=== PATIENT | male | born 1945 | race Caucasian/White ===

== ENCOUNTER 2020-04-02 06:50 | Day surgery (SDC) | payer MEDICARE, OTHER ==
[~2020-04-02] VITALS: Ht 193 cm; Wt 90.0 kg
[~2020-04-02 06:50] MED LIST: ADULT LOW DOSE81 MG PO; AMLODIPINE BESY10 MG PO; ASPIRIN EC81 MG PO; BACITRACIN15 GM TOP; CALCIUM600 MG PO; CYCLOBENZAPRINE10 MG PO; DAILY VALUE1 EACH PO; DILAUDID4 MG PO; EXCEDRIN EXTRA1 EAC1 PO; EXCEDRIN MIGRA1 EAC2 PO; FLOMAX0.4 MG PO; FLUOXETINE HCL20 M1 PO; HUMALOG100 UNITS/ SUB-Q; HYDROCHLOROTHIA25 MG PO; IRON27 MG PO; KEFLEX500 MG PO; LANTUS100 UNITS/ SUB-Q; LIPITOR20 MG PO; LISINOPRIL20 MG PO; METOPROLOL TART25 MG PO; MIRALAX17 GM PO; NOVOLOG100 UNIT/1 SUB-Q; SIMVASTATIN40 MG PO; TERAZOSIN HCL1 MG PO; TURMERIC500 M2 PO; TYLENOL325 MG PO; VITAMIN D5000 UNIT PO
[2020-04-02] MEDS ORDERED: HYDROCODON-ACE1 EA10 PO (08:57)
--- NOTE | 2020-04-02 09:09 | NUR ---
04/02/20 0909 Jose,Amber 0838 PT ARRIVED TO PACU ON 6L VIA MASK, PT ASLEEP. CBG 121. 0902 PT WAKES TO TACTILE STIMULI AND DENIES PAIN. HOB INCREASED SLIGHTLY. PT ABLE TO MOVE FINGERS AND REPORTS SOME NUMBNESS. LEFT HAND ELEVATED ON PILLOW AND ICE PLACED. 0904 O2 MASK REMOVED. PT EASILY FALLS BACK TO SLEEP AND SNORING NOTED.
--- NOTE | 2020-04-02 09:27 | NUR ---
PT ALERT, ORIENTED AND SUPPORTED BY HIS CLAYTON. PT SEEMS AT EASE, ALL QUESTIONS ASKED ANSWERED. PRAYER WAS REQUESTED, CLAYTON WILL WAIT IN RM.
--- NOTE | 2020-04-02 10:26 | OR ---
[facility] [address], [place] [address] Signed DATE OF OPERATION: 04/02/2020 SURGEON: Juana Carrillo MD PREOPERATIVE DIAGNOSES: Carpal tunnel syndrome, left. POSTOPERATIVE DIAGNOSIS: Carpal tunnel syndrome, left. PROCEDURE PERFORMED: Carpal tunnel release, left. RADIOTELEGRAPHER: None. ANESTHESIA: Marmarth block. TOURNIQUET TIME: 20 minutes. BRIEF HISTORY: Anjelica is a 75-year-old gentleman with progressive numbness in his left wrist and hand. Nerve conduction studies were consistent with carpal tunnel, and he wished to proceed with surgery. DESCRIPTION OF PROCEDURE: Once consent was obtained, he was taken to the operating room. After adequate anesthesia, he was placed on the operating table, all downside pressure points well padded. The left arm was prepped and draped in a standard sterile fashion. The carpal tunnel was approached through a 1.5 cm incision in the distal wrist crease. Under loupe magnification, dissection was taken down to the transverse carpal ligament. The palmaris longus was identified, retracted, and protected. The was dissected free of overlying soft tissue and released proximally a centimeter and distally to the distal extent, again under direct visualization. This was palpated using a [place] and found to be completely released. Wound was copiously irrigated with antibiotic solution, closed with 3-0 nylon. The wound and wrist were injected with 7 mL of 0.25% plain Marcaine. The wound was dressed with bacitracin, Adaptic, 4 x 8's, and gauze. He tolerated the Electronically Signed By: JUANA CARRILLO MD 04/02/20 1026 PATIENT NAME: ANJELICA MEDINA OPERATIVE REPORT DATE OF : 45 REPORT #: [id number] PHYSICIAN: JUANA CARRILLO MD PCP: STEVEN ROB MD REPORT IS CONFIDENTIAL AND NOT TO BE RELEASED WITHOUT AUTHORIZATION [facility] [address] [facility] [place], [place] [address] Signed procedure well. All sponge, needle, and instrument counts were correct. Juana Carrillo MD BA/ELIERL /[id number] Copies: ~ Electronically Signed By: JUANA CARRILLO MD 04/02/20 1026 PATIENT NAME: ANJELICA MEDINA OPERATIVE REPORT DATE OF : 45 REPORT #: [id number] PHYSICIAN: JUANA CARRILLO MD PCP: STEVEN ROB MD REPORT IS CONFIDENTIAL AND NOT TO BE RELEASED WITHOUT AUTHORIZATION
== END 2020-04-02 09:45 | disposition home or self-care (01) ==
LOC: OPS 06:50 → DS 06:50 → OPS 08:30 → DS 09:15 → OPS 09:45
PROVIDERS: ATTEND Specialist
PROC: 01N50ZZ Release Median Nerve, Open Approach (ICD-10-PCS; principal; 2020-04-02 08:30)
DX: G56.02 Carpal tunnel syndrome, left upper limb (principal); I10 Essential (primary) hypertension; E11.9 Type 2 diabetes mellitus without complications; F32.9 Major depressive disorder, single episode, unspecified; Z79.899 Other long term (current) drug therapy; Z79.82 Long term (current) use of aspirin; Z79.4 Long term (current) use of insulin; Z87.891 Personal history of nicotine dependence
CPT/HCPCS: J0690; J2704; J7121

== ENCOUNTER 2023-01-02 10:22 | Inpatient (IN) | payer MEDICARE, OTHER ==
[2023-01-02] VITALS (7 sets, daily range): BP systolic 114–141; BP diastolic 59–68
[~2023-01-02] VITALS: Ht 193 cm; Wt 101.6 kg
--- OUTSIDE RECORDS SUMMARY | ~2023-01-02 | XMS | Continuity of Care Document ---
Demographics + + + | Address | [address] | | | [place] [address] | + + + | Preferred Language | Unknown | + + + | Marital Status | | + + + | Anglican Affiliation | Unknown | + + + | Race | White | + + + | Ethnic Group | Not or | + + + Author + + + | Author | [facility] | + + + | Organization | [facility] | + + + | Address | [address] | | | [place] [address] | + + + | Phone | | + + + Care Team Providers + + + + | Care Boring Inspector Name | Role | Phone | + + + + Unavailable | Unavailable | + + + + Unavailable | Unavailable | + + + + Unavailable | Unavailable | + + + + Unavailable | Unavailable | + + + + Allergies and Intolerances + + + + + + | date | description | facility | reaction | severity | + + + + + + | (no date) | No Known | [facility] | (no reaction) | (no severity) | | | Allergies | | | | + + + + + + Encounters No information. Functional Status No information. Immunizations + + + + | date | description | facility | + + + + | 2014-02-26 00:00 | DTaP | [facility] | + + + + | 2022-05-08 00:00 | No vaccine administered | [facility] | + + + + Medications + + + + | date | description | facility | + + + + | 2022-05-08 00:00 | Turmeric Root Extract | [facility] | + + + + | 2022-05-08 00:00 | Turmeric extract 500 MG | [facility] | | | Oral Capsule | | + + + + | 2014-02-26 00:00 | BACITRACIN | [facility] | + + + + | 2014-02-26 00:00 | bacitracin zinc 0.5 UNT/MG | [facility] | | | Topical Ointment | | + + + + | 2022-05-08 00:00 | 3 ML insulin aspart, human | [facility] | | | 100 UNT/ML Cartridge | | | | [NovoLog] | | + + + + | 2022-05-08 00:00 | INSULIN ASPART | [facility] | + + + + | 2022-05-08 00:00 | SIMVASTATIN | [facility] | + + + + | 2022-05-08 00:00 | simvastatin 40 MG Oral | [facility] | | | Tablet | | + + + + | 2022-05-08 00:00 | | [facility] | | | ASPIRIN/ACETAMINOPHEN/CAFFE | | | | INE | | + + + + | 2022-05-08 00:00 | acetaminophen 250 MG / | [facility] | | | aspirin 250 MG / caffeine | | | | 65 MG Oral | | + + + + | 2014-02-26 00:00 | CEPHALEXIN | [facility] | + + + + | 2020-02-09 00:00 | CEPHALEXIN | [facility] | + + + + | 2014-02-26 00:00 | cephalexin 500 MG Oral | [facility] | | | Capsule [Keflex] | | + + + + | 2020-02-09 00:00 | cephalexin 500 MG Oral | [facility] | | | Capsule [Keflex] | | + + + + | 2022-05-08 00:00 | CALCIUM CARBONATE | [facility] | + + + + | 2022-05-08 00:00 | calcium carbonate 1500 MG | [facility] | | | Oral Tablet | | + + + + | 2022-05-08 00:00 | INSULIN GLARGINE | [facility] | + + + + | 2022-05-08 00:00 | insulin glargine 100 | [facility] | | | UNT/ML Injectable Solution | | | | [Lantus] | | + + + + | 2022-05-08 00:00 | AMLODIPINE BESYLATE | [facility] | + + + + | 2022-05-08 00:00 | amlodipine 10 MG Oral | [facility] | | | Tablet | | + + + + | 2022-05-08 00:00 | ASPIRIN | [facility] | + + + + | 2022-05-08 00:00 | aspirin 81 MG Delayed | [facility] | | | Release Oral Tablet | | + + + + | 2022-05-08 00:00 | HYDROCHLOROTHIAZIDE | [facility] | + + + + | 2022-05-08 00:00 | hydrochlorothiazide 25 MG | [facility] | | | Oral Tablet | | + + + + | 2022-05-08 00:00 | TERAZOSIN HCL | [facility] | + + + + | 2022-05-08 00:00 | terazosin 1 MG Oral | [facility] | | | Capsule | | + + + + | 2022-05-08 00:00 | ACETAMINOPHEN | [facility] | + + + + | 2022-05-08 00:00 | acetaminophen 325 MG Oral | [facility] | | | Tablet | | + + + + | 2022-05-08 00:00 | LISINOPRIL | [facility] | + + + + | 2022-05-08 00:00 | lisinopril 20 MG Oral | [facility] | | | Tablet | | + + + + | 2022-05-08 00:00 | ATORVASTATIN | [facility] | + + + + | 2022-05-08 00:00 | atorvastatin 20 MG Oral | [facility] | | | Tablet [Lipitor] | | + + + + | 2020-04-02 00:00 | HYDROCODONE | [facility] | | | BIT/ACETAMINOPHEN | | + + + + | 2020-04-02 00:00 | acetaminophen 325 MG / | [facility] | | | hydrocodone bitartrate 5 MG | | | | Oral Tabl | | + + + + | 2022-05-08 00:00 | CHOLECALCIFEROL (VITAMIN | [facility] | | | D3) | | + + + + | 2022-05-08 00:00 | cholecalciferol 0.125 MG | [facility] | | | Oral Tablet | | + + + + | 2022-05-08 00:00 | TAMSULOSIN HCL | [facility] | + + + + | 2022-05-08 00:00 | tamsulosin hydrochloride | [facility] | | | 0.4 MG Oral Capsule | | | | [Flomax] | | + + + + | 2022-05-08 00:00 | INSULIN HUMAN LISPRO | [facility] | + + + + | 2022-05-08 00:00 | insulin lispro 100 UNT/ML | [facility] | | | Injectable Solution | | | | [Humalog] | | + + + + | 2022-05-08 00:00 | METOPROLOL TARTRATE | [facility] | + + + + | 2022-05-08 00:00 | metoprolol tartrate 25 MG | [facility] | | | Oral Tablet | | + + + + | 2022-05-08 00:00 | POLYETHYLENE GLYCOL 3350 | [facility] | + + + + | 2022-05-08 00:00 | polyethylene glycol 3350 | [facility] | | | [address]30 MG Powder for Oral | | | | Solution [ | | + + + + | 2022-05-08 00:00 | HYDROMORPHONE HCL | [facility] | + + + + | 2022-05-08 00:00 | hydromorphone | [facility] | | | hydrochloride 4 MG Oral | | | | Tablet [Dilaudid] | | + + + + Problems + + + + | date | description | facility | + + + + | 2014-02-26 00:00 | Laceration of finger | [facility] | + + + + | 2014-02-26 00:00 | Laceration of finger | [facility] | + + + + | 2014-09-29 00:00 | Pneumothorax | [facility] | + + + + | 2014-09-29 00:00 | Pneumothorax | [facility] | + + + + | 2020-02-09 00:00 | 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 Results/Labs +--------+--------+ +---------+--------+---------+ | test | date | facility | value | unit | notes | +--------+--------+ +---------+--------+---------+ + + | Result panel 1 | + + + + + +-------+ + + | | 2022-05-08 | [facility] | 8.6 | (missing) | (missing) | | (unavailable | 08:22 [facility] | | | + + + +-------+ + + + + | Result panel 2 | + + + + + +--------+ + + | | 2022-05-08 | [facility] | 74.5 | (missing) | (missing) | | (unavailable | 08:22 [facility] | | | | + + + +--------+ + + + + | Result panel 3 | + + + + + +--------+ + + | | 2022-05-08 | [facility] | 14.6 | (missing) | (missing) | | (unavailable | 08:22 [facility] | | | | + + + +--------+ + + + + | Result panel 4 | + + + + + +-------+ + + | | 2022-05-08 | [facility] | 8.7 | (missing) | (missing) | | (unavailable | 08:22 [facility] | | | | + + + +-------+ + + + + | Result panel 5 | + + + + + +-------+ + + | | 2022-05-08 | [facility] | 1.8 | (missing) | (missing) | | (unavailable | 08:22 [facility] | | | | + + + +-------+ + + + + | Result panel 6 | + + + + + +-------+ + + | | 2022-05-08 | [facility] | 0.4 | (missing) | (missing) | | (unavailable | 08:22 [facility] | | | | + + + +-------+ + + + + | Result panel 7 | + + + + + +-------+---------+ + | | 2022-05-08 | [facility] | 194 | mg/dL | (missing) | | (unavailable | 08:22 [facility] | | | | + + + +-------+---------+ + + + | Result panel 8 | + + + + + +------+---------+ + | | 2022-05-08 | [facility] | 27 | mg/dL | (missing) | | (unavailable | 08:22 [facility] | | | | + + + +------+---------+ + + + | Result panel 9 | + + + + + +--------+---------+ + | | 2022-05-08 | [facility] | 1.68 | mg/dL | (missing) | | (unavailable | 08:22 [facility] | | | | + + + +--------+---------+ + + + | Result panel 10 | + + + + + +------+ + + | | 2022-05-08 | [facility] | 42 | (missing) | (missing) | | (unavailable | 08:22 [facility] | | | + + + +------+ + + + + | Result panel 11 | + + + + + +---------+ + + | | 2022-05-08 | [facility] | 16.07 | (missing) | (missing) | | (unavailable | 08:22 [facility] | | | | + + + +---------+ + + + + | Result panel 12 | + + + + + +--------+ + + | | 2022-05-08 | [facility] | 3.98 | (missing) | (missing) | | (unavailable | 08:22 [facility] | | | | + + + +--------+ + + + + | Result panel 13 | + + + + + +-------+ + + | | 2022-05-08 | [facility] | 140 | (missing) | (missing) | | (unavailable | 08:22 [facility] | | | + + + +-------+ + + + + | Result panel 14 | + + + + + +-------+ + + | | 2022-05-08 | [facility] | 3.8 | (missing) | (missing) | | (unavailable | 08:22 [facility] | | | | + + + +-------+ + + + + | Result panel 15 | + + + + + +-------+ + + | | 2022-05-08 | [facility] | 106 | (missing) | (missing) | | (unavailable | 08:22 [facility] | | | | + + + +-------+ + + + + | Result panel 16 | + + + + + +------+ + + | | 2022-05-08 | [facility] | 26 | (missing) | (missing) | | (unavailable | 08:22 [facility] | | | | + + + +------+ + + + + | Result panel 17 | + + + + + +--------+ + + | | 2022-05-08 | [facility] | 11.8 | (missing) | (missing) | | (unavailable | 08:22 [facility] | | | | + + + +--------+ + + + + | Result panel 18 | + + + + + +-------+---------+ + | | 2022-05-08 | [facility] | 9.1 | mg/dL | (missing) | | (unavailable | 08:22 [facility] | | | | + + + +-------+---------+ + + + | Result panel 19 | + + + + + +-------+ + + | | 2022-05-08 | [facility] | 6.5 | (missing) | (missing) | | (unavailable | 08:22 [facility] | | | | + + + +-------+ + + + + | Result panel 20 | + + + + + +-------+ + + | | 2022-05-08 | [facility] | 3.5 | (missing) | (missing) | | (unavailable | 08:22 [facility] | | | | + + + +-------+ + + + + | Result panel 21 | + + + + + +-------+ + + | | 2022-05-08 | [facility] | 3.0 | (missing) | (missing) | | (unavailable | 08:22 [facility] | | | | + + + +-------+ + + + + | Result panel 22 | + + + + + +--------+ + + | | 2022-05-08 | [facility] | 1.17 | (missing) | (missing) | | (unavailable | 08:22 [facility] | | | | + + + +--------+ + + + + | Result panel 23 | + + + + + +--------+ + + | | 2022-05-08 | [facility] | 12.1 | (missing) | (missing) | | (unavailable | 08:22 [facility] | | | | + + + +--------+ + + + + | Result panel 24 | + + + + + +-------+ + + | | 2022-05-08 | [facility] | 0.6 | (missing) | (missing) | | (unavailable | 08:22 [facility] | | | | + + + +-------+ + + + + | Result panel 25 | + + + + + +------+ + + | | 2022-05-08 | [facility] | 26 | (missing) | (missing) | | (unavailable | 08:22 [facility] | | | | + + + +------+ + + + + | Result panel 26 | + + + + + +------+ + + | | 2022-05-08 | [facility] | 14 | (missing) | (missing) | | (unavailable | 08:22 [facility] | | | | + + + +------+ + + + + | Result panel 27 | + + + + + +------+ + + | | 2022-05-08 | [facility] | 62 | (missing) | (missing) | | (unavailable | 08:22 [facility] | | | | + + + +------+ + + + + | Result panel 28 | + + + + + +--------+ + + | | 2022-05-08 | [facility] | 36.8 | (missing) | (missing) | | (unavailable | 08:22 [facility] | | | | + + + +--------+ + + + + | Result panel 29 | + + + + + +--------+ + + | | 2022-05-08 | [facility] | 92.5 | (missing) | (missing) | | (unavailable | 08:22 [facility] | | | | + + + +--------+ + + + + | Result panel 30 | + + + + + +--------+ + + | | 2022-05-08 | [facility] | 30.5 | (missing) | (missing) | | (unavailable | 08:22 [facility] | | | | + + + +--------+ + + + + | Result panel 31 | + + + + + +--------+ + + | | 2022-05-08 | [facility] | 33.0 | (missing) | (missing) | | (unavailable | 08:22 [facility] | | | | + + + +--------+ + + + + | Result panel 32 | + + + + + +--------+ + + | | 2022-05-08 | [facility] | 14.1 | (missing) | (missing) | | (unavailable | 08:22 [facility] | | | | + + + +--------+ + + + + | Result panel 33 | + + + + + +-------+ + + | | 2022-05-08 | [facility] | 172 | (missing) | (missing) | | (unavailable | 08:22 [facility] | | | | + + + +-------+ + + + + | Serum or plasma alanine aminotransferase measurement (enzymatic activity/volume) | + + + + + +------+ + + | Serum or | 2022-05-08 | [facility] | 14 | (missing) | (missing) | | plasma | 08:22 | [facility] | | | alanine | [facility] | | | | | aminotransfe | | | | | | | rase | | | | | | | measurement | | | | | | | (enzymatic | | | | | | | activity/vol | | | | | | | ume) | | | | | | + + + +------+ + + + + | Serum or plasma albumin measurement (mass/volume) | + + + + + +-------+ + + | Serum or | 2022-05-08 | [facility] | 3.5 | (missing) | (missing) | | plasma | 08:22 | [facility] albumin [facility] | | | | | measurement | | | | | | | (mass/volume | | | | | | | ) | | | | | | + + + +-------+ + + + + | Serum or plasma albumin/globulin mass ratio | + + + + + +--------+ + + | Serum or | 2022-05-08 | [facility] | 1.17 | (missing) | (missing) | | plasma | 08:22 | [facility] | | | albumin/glob | [facility] | | | | | ulin mass | | | | | | | ratio | | | | | | + + + +--------+ + + + + | Serum or plasma calcium measurement (mass/volume) | + + + + + +-------+ + + | Serum or | 2022-05-08 | [facility] | 9.1 | (missing) | (missing) | | plasma | 08:22 | [facility] | | | calcium [facility] | | | | | measurement | | | | | | | (mass/volume | | | | | | | ) | | | | | | + + + +-------+ + + + + | Serum or plasma anion gap 4 | + + + + + +--------+ + + | Serum or | 2022-05-08 | [facility] | 11.8 | (missing) | (missing) | | plasma anion | 08:22 | [facility] | | | gap 4 | [facility] | | | | + + + +--------+ + + + + | Serum or plasma aspartate aminotransferase measurement (enzymatic activity/volume) | + + + + + +------+ + + | Serum or | 2022-05-08 | [facility] | 26 | (missing) | (missing) | | plasma | 08:22 | [facility] | | | | aspartate | | [facility] | | | | | aminotransfe | | | | | | | rase | | | | | | | measurement | | | | | | | (enzymatic | | | | | | | activity/vol | | | | | | | ume) | | | | | | + + + +------+ + + + + | Serum or plasma total bilirubin measurement (mass/volume) | + + + + + +-------+ + + | Serum or | 2022-05-08 | [facility] | 0.6 | (missing) | (missing) | | plasma total | 08:22 | [facility] | | | | bilirubin | | [facility] | | | | | measurement | | | | | | | (mass/volume | | | | | | | ) | | | | | | + + + +-------+ + + + + | Serum or plasma carbon dioxide, total measurement (moles/volume) | + + + + + +------+ + + | Serum or | 2022-05-08 | [facility] | 26 | (missing) | (missing) | | plasma | 08:22 | [facility] | | | | carbon | | [facility] | | | | | dioxide, | | | | | | | total | | | | | | | measurement | | | | | | | (moles/volum | | | | | | | e) | | | | | | + + + +------+ + + + + | Serum or plasma chloride measurement (moles/volume) | + + + + + +-------+ + + | Serum or | 2022-05-08 | [facility] | 106 | (missing) | (missing) | | plasma | 08:22 | [facility] | | | | chloride | [facility] | | | | | measurement | | | | | | | (moles/volum | | | | | | | e) | | | | | | + + + +-------+ + + + + | Automated erythrocyte distribution width | + + + + + +--------+ + + | Automated | 2022-05-08 | [facility] | 14.1 | (missing) | (missing) | | erythrocyte | 08:22 | [facility] | | | distribution | [facility] | | | | | width | | | | | | + + + +--------+ + + + + | Serum or plasma creatinine measurement (mass/volume) | + + + + + +--------+ + + | Serum or | 2022-05-08 | [facility] | 1.68 | (missing) | (missing) | | plasma | 08:22 | [facility] | | | creatinine | [facility] | | | | | measurement | | | | | | | (mass/volume | | | | | | | ) | | | | | | + + + +--------+ + + + + | Serum globulin measurement (mass/volume) | + + + + + +-------+ + + | Serum | 2022-05-08 | [facility] | 3.0 | (missing) | (missing) | | globulin | 08:22 | [facility] | measurement [facility] | | | | | (mass/volume | | | | | | | ) | | | | | | + + + +-------+ + + + + | Serum or plasma glucose measurement (mass/volume) | + + + + + +-------+ + + | Serum or | 2022-05-08 | [facility] | 194 | (missing) | (missing) | | plasma | 08:22 | [facility] | | | | glucose | | [facility] | | | | | measurement | | | | | | | (mass/volume | | | | | | | ) | | | | | | + + + +-------+ + + + + | Serum or plasma potassium measurement (moles/volume) | + + + + + +-------+ + + | Serum or | 2022-05-08 | [facility] | 3.8 | (missing) | (missing) | | plasma | 08:22 | [facility] | | | potassium | [facility] | | | | | measurement | | | | | | | (moles/volum | | | | | | | e) | | | | | | + + + +-------+ + + + + | Serum or plasma protein measurement (mass/volume) | + + + + + +-------+ + + | Serum or | 2022-05-08 | [facility] | 6.5 | (missing) | (missing) | | plasma | 08:22 | [facility] | | | protein | [facility] | | | | | measurement | | | | | | | (mass/volume | | | | | | | ) | | | | | | + + + +-------+ + + + + | Serum or plasma sodium measurement (moles/volume) | + + + + + +-------+ + + | Serum or | 2022-05-08 | [facility] | 140 | (missing) | (missing) | | plasma | 08:22 | [facility] | | | | sodium | | [facility] | | | | | measurement | | | | | | | (moles/volum | | | | | | | e) | | | | | | + + + +-------+ + + + + | Serum or plasma urea nitrogen measurement (mass/volume) | + + + + + +------+ + + | Serum or | 2022-05-08 | [facility] | 27 | (missing) | (missing) | | plasma urea | 08:22 | [facility] | | | | nitrogen | | [facility] | | | | | measurement | | | | | | | (mass/volume | | | | | | | ) | | | | | | + + + +------+ + + + + | Serum or plasma urea nitrogen/creatinine mass ratio | + + + + + +---------+ + + | Serum or | 2022-05-08 | [facility] | 16.07 | (missing) | (missing) | | plasma urea | 08:22 | [facility] | | | | nitrogen/cre | | [facility] | | | | | atinine mass | | | | | | | ratio | | | | | | + + + +---------+ + + + + | Automated blood monocyte count as percentage of total leukocytes | + + + + + +-------+ + + | Automated | 2022-05-08 | [facility] | 8.7 | (missing) | (missing) | | blood | 08:22 | [facility] | | | | monocyte | | [facility] | | | | | count as | | | | | | | percentage | | | | | | | of total | | | | | | | leukocytes | | | | | | + + + +-------+ + + + + | Blood leukocytes automated count (number/volume) | + + + + + +-------+ + + | Blood | 2022-05-08 | [facility] | 8.6 | (missing) | (missing) | | leukocytes | 08:22 | [facility] | | | | automated | | [facility] | | | | | count | | | | | | | (number/volu | | | | | | | me) | | | | | | + + + +-------+ + + + + | Serum or plasma alkaline phosphatase measurement (enzymatic activity/volume) | + + + + + +------+ + + | Serum or | 2022-05-08 | [facility] | 62 | (missing) | (missing) | | plasma | 08:22 | [facility] | | | | alkaline | | [facility] | | | | | phosphatase | | | | | | | measurement | | | | | | | (enzymatic | | | | | | | activity/vol | | | | | | | ume) | | | | | | + + + +------+ + + + + | Automated blood basophil count as percentage of total leukocytes | + + + + + +-------+ + + | Automated | 2022-05-08 | [facility] | 0.4 | (missing) | (missing) | | blood | 08:22 | [facility] | | | | basophil | | [facility] | | | | | count as | | | | | | | percentage | | | | | | | of total | | | | | | | leukocytes | | | | | | + + + +-------+ + + + + | Automated blood eosinophil count as percentage of total leukocytes | + + + + + +-------+ + + | Automated | 2022-05-08 | [facility] | 1.8 | (missing) | (missing) | | blood | 08:22 | [facility] | | | | eosinophil | | [facility] | | | | | count as | | | | | | | percentage | | | | | | | of total | | | | | | | leukocytes | | | | | | + + + +-------+ + + + + | Blood hemoglobin measurement (mass/volume) | + + + + + +--------+ + + | Blood | 2022-05-08 | [facility] | 12.1 | (missing) | (missing) | | hemoglobin | 08:22 | [facility] measurement [facility] | | | | | (mass/volume | | | | | | | ) | | | | | | + + + +--------+ + + + + | Automated blood hematocrit | + + + + + +--------+ + + | Automated | 2022-05-08 | [facility] | 36.8 | (missing) | (missing) | | blood | 08:22 | [facility] | hematocrit | | [facility] | | | | + + + +--------+ + + + + | Automated blood lymphocyte count as percentage ot total leukocytes | + + + + + +--------+ + + | Automated | 2022-05-08 | [facility] | 14.6 | (missing) | (missing) | | blood | 08:22 | [facility] | | | | lymphocyte | | [facility] | | | | | count as | | | | | | | percentage | | | | | | | ot total | | | | | | | leukocytes | | | | | | + + + +--------+ + + + + | Automated blood neutrophil count as percentage of total leukocytes | + + + + + +--------+ + + | Automated | 2022-05-08 | [facility] | 74.5 | (missing) | (missing) | | blood | 08:22 | [facility] | | | | neutrophil | | [facility] | | | | | count as | | | | | | | percentage | | | | | | | of total | | | | | | | leukocytes | | | | | | + + + +--------+ + + + + | Automated blood platelet count (count/volume) | + + + + + +-------+ + + | Automated | 2022-05-08 | [facility] | 172 | (missing) | (missing) | | blood | 08:22 | [facility] | | | | platelet | | [facility] | | | | | count | | | | | | | (count/volum | | | | | | | e) | | | | | | + + + +-------+ + + + + | Automated erythrocyte mean corpuscular hemoglobin (mass per erythrocyte) | + + + + + +--------+ + + | Automated | 2022-05-08 | [facility] | 30.5 | (missing) | (missing) | | erythrocyte | 08:22 | [facility] | | | | mean | | [facility] | | | | | corpuscular | | | | | | | hemoglobin | | | | | | | (mass per | | | | | | | erythrocyte) | | | | | | | | | | | | | + + + +--------+ + + + + | Automated erythrocyte mean corpuscular hemoglobin concentration measurement | | (mass/volume) | + + + + + +--------+ + + | Automated | 2022-05-08 | [facility] | 33.0 | (missing) | (missing) | | erythrocyte | 08:22 | [facility] | | | | mean | | [facility] | | | | | corpuscular | | | | | | | hemoglobin | | | | | | | concentratio | | | | | | | n | | | | | | | measurement | | | | | | | (mass/volume | | | | | | | ) | | | | | | + + + +--------+ + + + + | Automated erythrocyte mean corpuscular volume | + + + + + +--------+ + + | Automated | 2022-05-08 | [facility] | 92.5 | (missing) | (missing) | | erythrocyte | 08:22 | [facility] | | [facility] | | | | | corpuscular | | | | | | | volume | | | | | | + + + +--------+ + + + + | Blood erythrocytes automated count (number/volume) | + + + + + +--------+ + + | Blood | 2022-05-08 | [facility] | 3.98 | (missing) | (missing) | | erythrocytes | 08:22 | [facility] | | | | automated | | [facility] | | | | | count | | | | | | | (number/volu | | | | | | | me) | | | | | | + + + +--------+ + + + + | Glomerular filtration rate/1.73 sq M.predicted [Volume Rate/Area] inSerum, Plasma or | | Blood by Creatinine-based formula (CKD-EPI 2020) | + + + + + +------+ + + | Glomerular | 2022-05-08 | [facility] | 42 | (missing) | (missing) | | filtration | 08:22 | [facility] | | | | | rate/1.73 sq | | Hospital | | | | | M.predicted | | | | | | | [Volume | | | | | | | Rate/Area] | | | | | | | inSerum, | | | | | | | Plasma or | | | | | | | Blood by | | | | | | | Creatinine-b | | | | | | | ased formula | | | | | | | (CKD-EPI | | | | | | | 2020) | | | | | | + + + +------+ + + Social History + + + + | date | description | facility | + + + + | 2022-05-08 00:00 | Former smoker | [facility] | + + + + Vital Signs + + + +---------+ | date | measurement | value | units | + + + +---------+ | 2022-05-08 00:00 | BMI | 28.0 | kg/m2 | + + + +---------+ | 2022-05-08 00:00 | BP_diastolic | 64 | mmHg | + + + +---------+ | 2022-05-08 00:00 | BP_systolic | 119 | mmHg | + + + +---------+ | 2022-05-08 00:00 | heart_rate | 65 | /min | + + + +---------+ | 2022-05-08 00:00 | height_metric | 193.04 | cm | + + + +---------+ | 2022-05-08 00:00 | height_standard | 76 | in | + + + +---------+ | 2022-05-08 00:00 | o2_saturation | 94 | % | + + + +---------+ | 2022-05-08 00:00 | respiration_rate | 15 | /min | + + + +---------+ | 2022-05-08 00:00 | temperature_metric | 36.11 | C | | | | | | + + + +---------+ | 2022-05-08 00:00 | | 97 | F | | | temperature_standar | | | | | d | | | + + + +---------+ | 2022-05-08 00:00 | weight_metric | 104.5 | kg | + + + +---------+ | 2022-05-08 00:00 | weight_standard | 230.38 | lb | + + + +---------+"
--- OUTSIDE RECORDS SUMMARY | ~2023-01-02 | XMS | Continuity of Care Document ---
Demographics + + + | Address | [address] | | | [place] [address] | + + + | Preferred Language | Unknown | + + + | Marital Status | | + + + | Taoism Affiliation | Unknown | + + + | Race | White | + + + | Ethnic Group | Not or | + + + Author + + + | Author | [facility] | + + + | Organization | [facility] | + + + | Address | [address] | | | [place] [address] | + + + | Phone | | + + + Care Team Providers + + + + | Care Social Services Specialist Name | Role | Phone | + [...] + | 2014-02-26 00:00 | DTaP | [facility] | + + + + | 2022-05-08 00:00 | No vaccine administered | [facility] | + + + + Medications + + + + | date | description | facility | + + + + | 2022-05-08 00:00 | Turmeric Root Extract | [facility] | + + + + | 2022-05-08 00:00 | Turmeric extract 500 MG | [facility] | | | Oral Capsule | | + + + + | 2014-02-26 00:00 | BACITRACIN | [facility] | + + + + | 2014-02-26 00:00 | bacitracin zinc 0.5 UNT/MG | [facility] | | | Topical Ointment | | + + + + | 2022-05-08 00:00 | 3 ML insulin aspart, human | [facility] | | | 100 UNT/ML Cartridge | | | | [NovoLog] | | + + + + | 2022-05-08 00:00 | INSULIN ASPART | [facility] | + + + + | 2022-05-08 00:00 | SIMVASTATIN | [facility] | + + + + | 2022-05-08 00:00 | simvastatin 40 MG Oral | [facility] | | | Tablet | | + + + + | 2022-05-08 00:00 | | [facility] | | | ASPIRIN/ACETAMINOPHEN/CAFFE | | | | INE | | + + + + | 2022-05-08 00:00 | acetaminophen 250 MG / | [facility] | | | aspirin 250 MG / caffeine | | | | 65 MG Oral | | + + + + | 2014-02-26 00:00 | CEPHALEXIN | [facility] | + + + + | 2020-02-09 00:00 | CEPHALEXIN | [facility] | + + + + | 2014-02-26 00:00 | cephalexin 500 MG Oral | [facility] | | | Capsule [Keflex] | | + + + + | 2020-02-09 00:00 | cephalexin 500 MG Oral | [facility] | | | Capsule [Keflex] | | + + + + | 2022-05-08 00:00 | CALCIUM CARBONATE | [facility] | + + + + | 2022-05-08 00:00 | calcium carbonate 1500 MG | [facility] | | | Oral Tablet | | + + + + | 2022-05-08 00:00 | INSULIN GLARGINE | [facility] | + + + + | 2022-05-08 00:00 | insulin glargine 100 | [facility] | | | UNT/ML Injectable Solution | | | | [Lantus] | | + + + + | 2022-05-08 00:00 | AMLODIPINE BESYLATE | [facility] | + + + + | 2022-05-08 00:00 | amlodipine 10 MG Oral | [facility] | | | Tablet | | + + + + | 2022-05-08 00:00 | ASPIRIN | [facility] | + + + + | 2022-05-08 00:00 | aspirin 81 MG Delayed | [facility] | | | Release Oral Tablet | | + + + + | 2022-05-08 00:00 | HYDROCHLOROTHIAZIDE | [facility] | + + + + | 2022-05-08 00:00 | hydrochlorothiazide 25 MG | [facility] | | | Oral Tablet | | + + + + | 2022-05-08 00:00 | TERAZOSIN HCL | [facility] | + + + + | 2022-05-08 00:00 | terazosin 1 MG Oral | [facility] | | | Capsule | | + + + + | 2022-05-08 00:00 | ACETAMINOPHEN | [facility] | + + + + | 2022-05-08 00:00 | acetaminophen 325 MG Oral | [facility] | | | Tablet | | + + + + | 2022-05-08 00:00 | LISINOPRIL | [facility] | + + + + | 2022-05-08 00:00 | lisinopril 20 MG Oral | [facility] | | | Tablet | | + + + + | 2022-05-08 00:00 | ATORVASTATIN | [facility] | + + + + | 2022-05-08 00:00 | atorvastatin 20 MG Oral | [facility] | | | Tablet [Lipitor] | | + + + + | 2020-04-02 00:00 | HYDROCODONE | [facility] | | | BIT/ACETAMINOPHEN | | + + + + | 2020-04-02 00:00 | acetaminophen 325 MG / | [facility] | | | hydrocodone bitartrate 5 MG | | | | Oral Tabl | | + + + + | 2022-05-08 00:00 | CHOLECALCIFEROL (VITAMIN | [facility] | | | D3) | | + + + + | 2022-05-08 00:00 | cholecalciferol 0.125 MG | [facility] | | | Oral Tablet | | + + + + | 2022-05-08 00:00 | TAMSULOSIN HCL | [facility] | + + + + | 2022-05-08 00:00 | tamsulosin hydrochloride | [facility] | | | 0.4 MG Oral Capsule | | | | [Flomax] | | + + + + | 2022-05-08 00:00 | INSULIN HUMAN LISPRO | [facility] | + + + + | 2022-05-08 00:00 | insulin lispro 100 UNT/ML | [facility] | | | Injectable Solution | | | | [Humalog] | | + + + + | 2022-05-08 00:00 | METOPROLOL TARTRATE | [facility] | + + + + | 2022-05-08 00:00 | metoprolol tartrate 25 MG | [facility] | | | Oral Tablet | | + + + + | 2022-05-08 00:00 | POLYETHYLENE GLYCOL 3350 | [facility] | + + + + | 2022-05-08 00:00 | polyethylene glycol 3350 | [facility] | | | [address]269 MG Powder for Oral | | | | Solution [ | | + + + + | 2022-05-08 00:00 | HYDROMORPHONE HCL | [facility] | + + + + | 2022-05-08 00:00 | hydromorphone | [facility] | | | hydrochloride 4 MG Oral | | | | Tablet [Dilaudid] | | + + + + Problems + + + + | date | description | facility | + + + + | 2014-02-26 00:00 | Laceration of finger | [facility] | + + + + | 2014-02-26 00:00 | Laceration of finger | [facility] | + + + + | 2014-09-29 00:00 | Pneumothorax | [facility] | + + + + | 2014-09-29 00:00 | Pneumothorax | [facility] | + + + + | 2020-02-09 00:00 | 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
[~2023-01-02 10:22] MED LIST changes: +HYDROCODON-ACE1 EA10 PO; +VITAMIN D350 MCG PO; -VITAMIN D5000 UNIT PO
[2023-01-02 11:16] LABS: BASOPHILS 0.1 % (0-2); EOSINOPHILS 0.1 % (0-6); HEMATOCRIT 34.6 % (35.0-50.0); HEMOGLOBIN 11.4 g/dL (12.0-18.0); LYMPHOCYTES 3.3 % (24-44); MCH 30.4 (27-36); MCHC 32.9 g/dl (30-36); MCV 92.5 fl (81-99); MONOCYTES 7.3 % (0-12); NEUTROPHILS 89.2 % (39-80); PLATELET COUNT 208 K/uL (140-440); RBC 3.74 M/ul (4.3-5.7); RDW 14.8 (10.5-15.0)
[2023-01-02 11:34] LABS: LACTIC ACID, BLOOD 3.9 mmol/L (0.4-2.0)
[2023-01-02 11:40] LABS: ALBUMIN 2.4 g/dL (3.4-5.0); ALBUMIN/GLOBULIN RATIO 0.55 (1.1-2.4); ANION GAP 24.8 (7-21); BUN/CREATININE RATIO 27.05 (6.0-28.6); CALCIUM 8.5 mg/dL (8.5-10.1); CREATININE, SERUM 4.14 mg/dL (0.70-1.30); POTASSIUM 3.8 mmol/L (3.5-5.1); PROTEIN, TOTAL 6.8 g/dL (6.4-8.2)
[2023-01-02 12:13] LABS: INFLUENZA B NAA NEGATIVE (NEGATIVE); RESPIRATORY SYNCYTIAL VIR NAA NEGATIVE (NEGATIVE)
[2023-01-02 12:32] LABS: BILIRUBIN, URINE NEGATIVE (negative); BLOOD/HGB, URINE SMALL (Negative); KETONE, URINE NEGATIVE (Negative); LEUK ESTERASE, URINE NEGATIVE (negative); NITRITE, URINE NEGATIVE (negative); PH, URINE 5.5 (5-7)
[2023-01-02 12:42] LABS: BACTERIA, URINE 1+ /hpf (negative); CASTS, URINE NONE SEEN \\lpf; CRYSTALS, URINE NONE SEEN (0-1+); EPITHELIAL CELLS, URINE SQUAMOUS 1+ /lpf (0-1+); WHITE BLOOD CELLS, URINE 0-1 /HPF (0-5)
[2023-01-02 12:43] LABS: COLLECTION TYPE, URINE CLEAN CATCH; REFLEX CULTURE, URINE No (No)
[2023-01-02 13:10] LABS: LACTIC ACID, BLOOD 2.8 mmol/L (0.4-2.0)
[2023-01-02 13:14] LABS: ANION GAP 17.5 (7-21); BUN/CREATININE RATIO 28.73 (6.0-28.6); CALCIUM 7.9 mg/dL (8.5-10.1); CREATININE, SERUM 3.55 mg/dL (0.70-1.30); POTASSIUM 3.5 mmol/L (3.5-5.1)
--- NOTE | 2023-01-02 15:01 | NUR ---
DISCUSSED PATIENT'S REQUEST FOR PRN MEDS FOR BACK SPASMS WITH DR. LUDWIG. RECIEVED ORDER AND VERIFIED VIA REPEAT BACK. SEE EMAR.
--- NOTE | 2023-01-02 15:56 | NUR ---
PATIENT ARRIVED TO THE UNIT VIA STRETCHER. 3 PERSON ASSIST TO MOVE OVER TO BED. PATIENT IS AAOX3. REPORTS 8/10 PAIN IN HIS BACK; WHICH IS CHRONIC AND WORSE WITH MOVEMENT. TOLERATING ROOM AIR; DENIES FEELING SOB. NO GI UPSET. MYRICK PLACED IN ED. PATIENT'S SKIN IS GROSSLY INTACT. IV SITES WNL X2. IF FLUIDS AND INSULIN DRIP STARTED PER ORDER. PATIENT PROVIDED WITH PRN TYLENOL AND FLEXARIL PER ORDERS. TOLERATED ORAL INTAKE WELL. DENIES OTHER NEEDS, CALL LIGHT IN REACH.
--- NOTE | 2023-01-02 16:03 | EKG ---
[facility] [address] [facility] [place] [address] Signed Normal sinus rhythm Low voltage QRS Borderline ECG When compared with ECG of 30-MAR-2020 10:33, Vent. rate has increased BY 38 BPM Confirmed by JOHNNY LUDWIG MD ([id number]) on 01/02/2023 4:03:27 PM Electronically Signed By: JOHNNY LUDWIG 01/02/23 1603 PATIENT NAME: ANJELICA MEDINA Electrocardiogram DATE OF : 45 PHYSICIAN: JOHNNY LUDWIG REPORT #: [id number] REPORT IS CONFIDENTIAL AND NOT TO BE RELEASED WITHOUT AUTHORIZATION
--- NOTE | 2023-01-02 16:53 | NUR ---
LAB IN FOR TIMED DRAW. ACCU CHECK DONE; BLOOD GLUCOSE >200. REPORTED TO MD; NO NEW ORDERS.
[2023-01-02 17:06] LABS: ANION GAP 15.2 (7-21); BUN/CREATININE RATIO 31.04 (6.0-28.6); CALCIUM 8.4 mg/dL (8.5-10.1); CREATININE, SERUM 3.06 mg/dL (0.70-1.30); POTASSIUM 3.2 mmol/L (3.5-5.1)
--- NOTE | 2023-01-02 18:00 | NUR ---
DISCUSSED LAB FINDINGS WITH MD. PATIENT IVF SWITCHED PER NEW ORDER. IV INSULIN DC. PATIENT WILL RECEIVED ACCU CHECKS AND SSI Q2H.
--- NOTE | 2023-01-02 18:45 | NUR ---
IN ROOM FOR ROUNDS. PT IN BED WITH EYES CLOSED, RESPONDS TO VERBAL STIMULI. CONTINUOUS IV FLUIDS INFUSING AT 130ML/HR. MYRICK CATHETER PATENT, URINE DRAINED, AND TOTAL OUTPUT RECORDED. REPORTS NO CHANGE IN BACK PAIN FOLLOWING ORAL MEDICATION. 100% OF DINNER CONSUMED AND TRAY REMOVED FROM ROOM. UPDATED ON CARE PLAN AND DENIES FURTHER NEEDS. SIDE RAILS UP X 3 AND CALL LIGHT IN REACH. BED IN LOWEST POSITION.
--- NOTE | 2023-01-02 19:30 | NUR ---
PT ASSESSED AND FOUND TO BE SLEEPING IN HOSPITAL BED. PT AWAKENS EASILY, IS ALERT AND ORIENTED X 4 WITH A GCS OF 15. PT FOLLOWS COMMANDS, HAS EQUAL PRICING ANALYST AND BILATERAL PUSH/PULL IN LOWER EXTREMITIES. SAFETY CHECK PERFORMED, ALARM PERAMETERS ADJUSTED AND NURSE CALL LIGHT PROVIDED TO PT. PT WITH NO QUESTIONS OR CONCERNS AT THIS TIME. BASELINE V/S ASSESSED. BILAT PIVS PATENT. PT ABLE TO TURN HIMSELF FROM SIDE TO SIDE. SKIN CHECK PERFORMED WITH 2ND RN. MYRICK CATHETER CLEANED WITH CHG WIPE.
--- NOTE | 2023-01-02 20:04 | NUR ---
[facility] ICU CONTACTED FOR RM CONFIRMATION AND UPDATED ETA. PT WILL BE PLACED IN RM 2144 IN THE ICU AND POLY WILL BE THE RN TAKING PT. NURSE REPORT ALREADY PROVIDED. EMS CREW AT BEDSIDE. PT TRANSFERRED FROM HOSPITAL BED TO AMBULANCE [facility] WITHOUT PROBLEM. FULL PT REPORT WITH BELONGINGS TRANSFERRED TO SCIENTIFIC INFORMATICS ANALYST [place]. TRANSFER PACKET, INCLUDING IMAGING CD, PROVIDED TO EMS CREW. EMS AND PT WITH NO QUESTIONS OR CONCERNS AT THIS TIME. PT LEFT IN CUSTODY OF SCIENTIFIC INFORMATICS ANALYST THANIA/ EMS CREW.
[2023-01-02 21:13] LABS: ANION GAP 14.4 (7-21); BUN/CREATININE RATIO 31.29 (6.0-28.6); CALCIUM 8.1 mg/dL (8.5-10.1); CREATININE, SERUM 2.62 mg/dL (0.70-1.30); POTASSIUM 3.4 mmol/L (3.5-5.1)
[2023-01-03] VITALS (31 sets, daily range): BP systolic 93–134; BP diastolic 52–74
--- NOTE | 2023-01-03 00:19 | NUR ---
DR. LUDWIG CALLED REGARDING TACHYPNEA, CONTINUED TACHYCARDIA, NEW ONSET FEVER AND NO ABX ADMINISTRATION AT THIS TIME. NEW ORDERS OBTAINED FOR FLUID BOLUS, ABD AND REPEAT LACTATE IN THE AM.
--- NOTE | 2023-01-03 01:41 | NUR ---
A-FIB NOTED. 12 LEAD EKG ORDERED. V/S REASSESSED
--- NOTE | 2023-01-03 01:48 | NUR ---
PT CONVERTED TO A-FIB. MD MADE AWARE AND NEW ORDERS OBTAINED.
--- NOTE | 2023-01-03 02:09 | NUR ---
DILT GTT STARTED. V/S SET Q-15.
[2023-01-03 05:18] LABS: HEMATOCRIT 34.7 % (35.0-50.0); HEMOGLOBIN 11.7 g/dL (12.0-18.0); MCH 30.9 (27-36); MCHC 33.8 g/dl (30-36); MCV 91.4 fl (81-99); PLATELET COUNT 198 K/uL (140-440); RBC 3.79 M/ul (4.3-5.7); RDW 14.4 (10.5-15.0)
[2023-01-03 05:32] LABS: BANDS, MANUAL DIFF 35; LYMPHOCYTES, MANUAL DIFF 11; MONOCYTES, MANUAL DIFF 6; NEUTROPHILS, MANUAL DIFF 48
[2023-01-03 05:37] LABS: ALBUMIN 1.9 g/dL (3.4-5.0); ALBUMIN/GLOBULIN RATIO 0.44 (1.1-2.4); ANION GAP 13.5 (7-21); BILIRUBIN, TOTAL 0.8 ng/dL (0.2-1.0); BUN/CREATININE RATIO 27.89 (6.0-28.6); CALCIUM 8.5 mg/dL (8.5-10.1); CREATININE, SERUM 2.33 mg/dL (0.70-1.30); MAGNESIUM 2.2 mg/dL (1.8-2.4); POTASSIUM 3.5 mmol/L (3.5-5.1); PROTEIN, TOTAL 6.2 g/dL (6.4-8.2)
[2023-01-03 05:41] LABS: LACTIC ACID, BLOOD 2.6 mmol/L (0.4-2.0)
--- NOTE | 2023-01-03 06:29 | NUR ---
LAB CALLED WITH LACTATE OF 2.6, MADE AWARE.
--- NOTE | 2023-01-03 07:30 | NUR ---
REPORT RECEIVED. PATIENT IS RESTING. IVF PATENT, MYRICK CATH PATENT. NO DISTRESS NOTED.
[2023-01-03] MEDS ORDERED: METOPROLOL SUCC25 MG PO (07:37)
--- NOTE | 2023-01-03 07:56 | NUR ---
PT REMAINS AWAKE, ALERT AND ORIENTED X 4 WITH A GCS OF 15. PT CONTINUES TO BE IN A-FIB WITH RATE CONTROLLED BY DILT GTT AT 20 MG/HR. PT NORMOTENSIVE AND FEBRILE NOTED ONCE THROUGHOUT THE NIGHT. MD MADE AWARE AND NEW ORDERS INITIATED. LS CLEAR, PT WITH NOTED TACHYPNEA WITH RR IN THE 30S, MD AWARE. LACATE COTINUES TO BE ELEVATED AT 2.6, MD AWARE. H/H REMAIN STABLE, WBC 10.6, NA 131 AND K 3.5. NEW ORDERS TO REPLACE K OBTAINED. PT WITH ADEQUATE UO. LIVER ENZYMES CONTINUE TO BE ELEVATED.
--- NOTE | 2023-01-03 09:00 | NUR ---
PATIENT SITTING UP IN BED FOR BREAKFAST, EMISIS BAG REQUESTED PATIENT BECAME NAUSEATED AND VOMITED. CUP OF BROTH AND SALTINE PROVIDED. PATIENT SIPPING. PATIENT CLEANED UP AND BLANKET REPLACED. CALL LIGHT IN EASY REACH
--- NOTE | 2023-01-03 10:45 | NUR ---
PHYS THERAPY HERE TO SEE PATIENT. PATIENT IN ROOM. CARDIZEM GTT AT 15 MG/HR. PO CARIZEM 60 MG GIVEN EARLIER. WILL CONTINUE TO TITATE CARDIZEN GTT PRN.
--- NOTE | 2023-01-03 12:08 | NUR ---
PATIENTS SON MAKE CALLED FOR AN UPDATE. PATIENT OKAYED SON TO BE GIVEN AN UPDATE. ALL QUESTIONS ANSWERED. NO OTHER QUESTIONS AT THIS TIME. PLAN OF CARE REVIEWED WITH HIM.
--- NOTE | 2023-01-03 13:30 | NUR ---
CARDIZEM GTT OFF NOW. PATIENT IS NAPPING NOW.
[2023-01-03 13:48] LABS: TSH, 3RD GENERATION 0.665 uIU/mL (0.358-3.740)
--- NOTE | 2023-01-03 14:27 | EKG ---
[facility] [address] [place] [address] Signed Atrial fibrillation with rapid ventricular response Low voltage QRS Nonspecific ST and T wave abnormality Abnormal ECG When compared with ECG of 02-JAN-2023 11:11, Atrial fibrillation has replaced Sinus rhythm Vent. rate has increased BY 48 BPM Nonspecific T wave abnormality, worse in Lateral leads Confirmed by JOHNNY LUDWIG MD ([id number]) on 01/03/2023 2:26:50 PM Electronically Signed By: JOHNNY LUDWIG 01/03/23 1427 PATIENT NAME: ANJELICA MEDINA DIONICIO Electrocardiogram DATE OF : 45 PHYSICIAN: JOHNNY LUDWIG REPORT #: [id number] REPORT IS CONFIDENTIAL AND NOT TO BE RELEASED WITHOUT AUTHORIZATION
--- NOTE | 2023-01-03 14:53 | NUR ---
SPOKE TO PATIENT ABOUT THE DISCHARGE PLAN.PATIENT CAN USUALLY PERFROM HIS ADLS ON HIS OWN. PATIENT CAN AFFORD HOUSING AND FOOD. PATIENT HAS A WALKER AND A WHEELCHAIR THAT HE DOES NOT USE OFTEN. PATIENT ENCOURAGED TO USE HIS DME THAT PATIENT HAS AT HOME BECAUSE PATIENT HAS OCCAS.FALLS.PATIENT IS ABLE TO DRIVE WHEN HE IS WELL.PATIENT HAS FRIENDS AND FAMILY THAT CAN HELP NEEDED.PATIENT PLANS TO GO HOME WITH HIS WHO WILL HELP NEEDED. PATIENT'S DEMOGRAPHICS ARE CORRECT IN THE MEDICAL RECORD.
--- NOTE | 2023-01-03 15:45 | NUR ---
PATIENT RESTING IN BED, BEDBATH GIVEN, PATIENT ROLLED FROM SIDE TO SIDE WITH ASSTANCE FOR LINEN CHANGE. PATIENT TOLERATED WELL. PATIENT VERY WARM TO THE TOUCH, HOWEVER, ORAL TEMP OF 98.3 NOTED. CALL LIGHT IN EASY REACH.
[2023-01-03] MEDS ORDERED: INSULIN AS100 UNIT/2 SUB-Q (16:04)
--- NOTE | 2023-01-03 16:10 | NUR ---
ACCUCHECK 380. DR. LUDWIG AWARE. INSULIN 11 UNITS GIVEN. WILL RECHECK ACCUCHECK BEFORE DINNER.
--- NOTE | 2023-01-03 16:30 | NUR ---
IVF CHANGED TO 1/2 NS AT 130 ML/HR.
--- NOTE | 2023-01-03 17:21 | NUR ---
HAS BEEN RESTING MOST OF THE DAY. CONTINUES WITH LEFT HIP PAIN /. STATES TYLENOL HAS HELPED THE PAIN.
--- NOTE | 2023-01-03 18:00 | NUR ---
RESTING AFTER DINNER. TOOK 40% OF DINNER. IVF DECREASED TO 75 ML/HR.
--- NOTE | 2023-01-03 18:11 | NUR ---
DR. LUDWIG UPDATED ON PATIENT STATUS. ORDERS RECIEVED TO GIVE INSULIN 5 UNITS SQ NO. IS AWARE OF RESP RATE, O2 SATS, OVERALL PAIN, WELL MOST CURRENT ACCUCHECK.
[2023-01-04] VITALS (15 sets, daily range): BP systolic 94–123; BP diastolic 52–76
--- NOTE | 2023-01-04 04:00 | NUR ---
LAB CALLED TO REPORT AEROBIC B/C WITH GRAM + COCCI. PT IS CURRENTLY RESTING AND IS HEMODYNAMICALLY STABLE. PT CONTINUES TO RECIEVE ZOSYN ABX. WE'LL INFORM OF RESULTS IN AM.
[2023-01-04 05:52] LABS: BASOPHILS 0.2 % (0-2); EOSINOPHILS 0.7 % (0-6); HEMATOCRIT 31.2 % (35.0-50.0); HEMOGLOBIN 10.3 g/dL (12.0-18.0); MCH 30.2 (27-36); MCHC 33.1 g/dl (30-36); MCV 91.1 fl (81-99); MONOCYTES 8.4 % (0-12); NEUTROPHILS 84.7 % (39-80); PLATELET COUNT 249 K/uL (140-440); RBC 3.43 M/ul (4.3-5.7); RDW 14.3 (10.5-15.0)
[2023-01-04 06:03] LABS: BUN/CREATININE RATIO 21.46 (6.0-28.6); CALCIUM 8.2 mg/dL (8.5-10.1); CREATININE, SERUM 1.77 mg/dL (0.70-1.30)
--- NOTE | 2023-01-04 06:47 | NUR ---
PT REMAINS AWAKE, ALERT AND ORIENTED X 4 WITH A GCS OF 15. PT CONTINUES TO BE IN A-FIB, RATE CONTROLLED, NORMOTENSIVE AND A-FERBILE THROUGHOUT THE NIGHT. PT WITH ADEQUATE U/O, AND HAS GOOD PO INTAKE. PT WITH GRAM + COCCI IN AEROBIC BC. DR. LUDWIG MADE AWARE. PT CONTINUES TO RECIEVE ZOSYN FOR ABX THERAPY. LABS: PT WITH NOTED LEUKOCYTOSIS WITH WBC AT 13. DR. LUDWIG MADE AWARE. PT WITH HYPOKALEMIA, K AT 3. NEW ODERDS OBTAINED FOR K REPLACEMENT. CREATININE IMPROVED TO 1.7. BS IMPROVED THROUGHOUT THE NIGHT, PT HAS NOT REQUIRED CORRECTIVE DOSE INSULIN X 4 HRS.
--- NOTE | 2023-01-04 07:20 | NUR ---
report from charlene rn, pt resting with eyes closed, call light in reach.
--- NOTE | 2023-01-04 07:40 | NUR ---
Spoke with Jan. He states he is now retired. 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 He states he insulin pump has malfuctioned. He states he stopped using it last Sat as it cont. to beep and when he added insuling his sugars never changed. He has not felt well enough to contact [employer]. I was able to get the phone number [phone] #[id number] [address] [id number] pump. 1600 I was able to contact a rep and explain pt was admitted to the hospital with BS of 500. The rep requested to speak with Jan and I gave them his cell number he has with him. They call and problem solve his pump.
--- NOTE | 2023-01-04 08:20 | NUR ---
dr dove here with rn to review vitals, new order for ekg and possible changes to meds, rad technologist and xray as well as dc menu planner all in pt room for cares. call light in reach.
--- NOTE | 2023-01-04 09:45 | NUR ---
pt starting to get up with OT and RN to for meal - left leg found to be very red, swollen and painful, dr dove called to examine pt. pain went from 4 to 10 with attempt to lift leg. reports that his leg/back has hurt since last . gave verbal orders for MRI lumbar spine, r/o discitis, doppler left leg, r/o clot, start vanco per pharmacy orders, continue zosyn. and pt discussed plan of care with , rn and acetylene burner. MRI is available at 2 pm today.
[2023-01-04 11:01] LABS: HEMATOCRIT 33.8 % (35.0-50.0); MCHC 32.5 g/dl (30-36); MCV 92.1 fl (81-99); PLATELET COUNT 260 K/uL (140-440); RBC 3.66 M/ul (4.3-5.7); RDW 14.6 (10.5-15.0)
[2023-01-04 11:12] LABS: ANION GAP 14.6 (7-21); BUN/CREATININE RATIO 20.9 (6.0-28.6); CALCIUM 8.2 mg/dL (8.5-10.1); CREATININE, SERUM 1.77 mg/dL (0.70-1.30); MAGNESIUM 1.7 mg/dL (1.8-2.4); POTASSIUM 3.6 mmol/L (3.5-5.1)
[2023-01-04 11:20] LABS: BANDS, MANUAL DIFF 4; LYMPHOCYTES, MANUAL DIFF 7; MONOCYTES, MANUAL DIFF 9; NEUTROPHILS, MANUAL DIFF 80
--- NOTE | 2023-01-04 11:54 | NUR ---
pt bs checked. in room pt resting.
--- NOTE | 2023-01-04 12:35 | EKG ---
[facility] [address] [place], [place] [address] Signed Atrial fibrillation with rapid ventricular response Low voltage QRS Nonspecific T wave abnormality Abnormal ECG When compared with ECG of 03-JAN-2023 01:35, No significant change was found Confirmed by JOHNNY LUDWIG MD ([id number]) on 01/04/2023 12:35:06 PM Electronically Signed By: JOHNNY LUDWIG 01/04/23 1235 PATIENT NAME: CAROLANJELICA Electrocardiogram DATE OF : 45 PHYSICIAN: JOHNNY LUDWIG REPORT #: [id number] REPORT IS CONFIDENTIAL AND NOT TO BE RELEASED WITHOUT AUTHORIZATION
--- NOTE | 2023-01-04 13:37 | NUR ---
this rn went to mri with pt, slide trsf pt from bed to mri table, pt was able to tollerate mri well. hr 90's and 3l nc oxygen sats 95-99. pt returned to room 129 with rn at 1440. vitals taken, in room, slide transfer back to bed with call light in reach. linens were changed today by this rn,
--- NOTE | 2023-01-04 13:46 | NUR ---
ATTEMPTED TO VISIT. PT AND BOTH ON PHONE AND INDICATED DID NOT WANT TO BE DISTURBED. EXITED ROOM. SAID SILENT PRAYER FOR HEALING AND COMFORT.
--- NOTE | 2023-01-04 15:00 | NUR ---
SUGAR FREE ICE CREAM AND CAM PROVIDED EPR PATIENT REQUEST. IN ROOM.
--- NOTE | 2023-01-04 16:33 | NUR ---
Spoke with Ana Rosa BARBER [facility]. [employer] was not able to problem solve with pt's pump as he does not have insulin with him to fill the pump.
--- NOTE | 2023-01-04 18:17 | NUR ---
dr farrell in to review plan of care with pt, and son. dr examined left leg.
--- NOTE | 2023-01-04 18:43 | NUR ---
after dr farrell visit - this rn provided family with printed education on cellulitis and spinal stenosis. pt hob up eating with encouragement. pt given po tylenol and flexeril for 7/10 lle pain at rest.
--- NOTE | 2023-01-04 20:00 | NUR ---
RECEIVED REPORT FROM ELISABETH LUNDBERG; ALL QUESTIONS AND CONCERNS WERE ADDRESSED AT THIS TIME, UPON ASSSESSMENT PT WAS A&O, AFEBRILE, VSS, DENIES PAIN AT THIS TIME, PT IS NOW ON ACHS; WILL CONTINUE TO MONITOR AND NOTIFY PROVIDER WITH ANY CHANGES IN PT STATUS
[2023-01-05] VITALS (9 sets, daily range): BP systolic 91–135; BP diastolic 58–97
--- NOTE | 2023-01-05 01:40 | NUR ---
PT HAS SLEPT WELL THROUGH UPHOLSTERY REPAIRER, ADEQUATE URINARY OUTPUT, VSS, WILL CONTINUE TO MONITOR
[2023-01-05 05:33] LABS: HEMATOCRIT 33.4 % (35.0-50.0); HEMOGLOBIN 10.9 g/dL (12.0-18.0); MCH 29.7 (27-36); MCHC 32.5 g/dl (30-36); MCV 91.5 fl (81-99); PLATELET COUNT 292 K/uL (140-440); RBC 3.65 M/ul (4.3-5.7); RDW 14.8 (10.5-15.0)
[2023-01-05 05:50] LABS: ALBUMIN 1.5 g/dL (3.4-5.0); ALBUMIN/GLOBULIN RATIO 0.36 (1.1-2.4); ANION GAP 12.7 (7-21); BILIRUBIN, TOTAL 0.9 ng/dL (0.2-1.0); BUN/CREATININE RATIO 22.5 (6.0-28.6); CALCIUM 8.2 mg/dL (8.5-10.1); CREATININE, SERUM 1.6 mg/dL (0.70-1.30); POTASSIUM 3.7 mmol/L (3.5-5.1); PROTEIN, TOTAL 5.7 g/dL (6.4-8.2)
--- NOTE | 2023-01-05 05:57 | NUR ---
PT SLEPT MAJORITY OF THE NIGHT, WOKE UP ONCE REQUESTING PRN MUSCLE RELAXER AND WAS ABLE TO FALL BACK ASLEEP; VSS, ADEQUATE URINARY OUTPUT, PENDING LABS; WILL CONTINUE TO MONITOR AND NOTIFY PROVIDER WITH ANY CHANGES IN PT STATUS
[2023-01-05 06:01] LABS: BANDS, MANUAL DIFF 9; EOSINOPHILS, MANUAL DIFF 1; LYMPHOCYTES, MANUAL DIFF 7; MONOCYTES, MANUAL DIFF 1; NEUTROPHILS, MANUAL DIFF 82
--- NOTE | 2023-01-05 07:15 | NUR ---
REPORT FROM YG RN, PT RESTING IN ROOM WITH EYES CLOSED RESP RATE 24, CALL LIGHT IN REACH - IV FUSING, MYRICK DRAINING YELLOW URINE,
--- NOTE | 2023-01-05 07:30 | NUR ---
DR GARZA IN WITH PT TO DISCUSS PLAN OF CARE, PLAN FOR TRSF TO MED SURG TODAY.
--- NOTE | 2023-01-05 11:36 | NUR ---
answered pt call light, she is restless, hard to understand but she is asking for icecream and ready for dinner - it is on way - re oriented pt and alarm on.
--- NOTE | 2023-01-05 12:03 | NUR ---
PT SITTING IN CHAIR. CLAYTON ON COUCH. PT SAYS IS FEELING BETTER. DENIED NEEDS. CONSENTED TO PRAYER. PRAYED FOR ONGOING HEALING.
--- NOTE | 2023-01-05 13:28 | NUR ---
report to vik campbell, trsf to rm 109 med surg. via chair.
--- NOTE | 2023-01-05 14:00 | NUR ---
PT ARRIVES TO FLOOR VIA RECLINER ACCOMPANIED BY ELISABETH GUADALUPE AND A AUTOMOTIVE PROJECT ENGINEER. PT RESTING COMFORTABLY IN RECLINER. 1L NC WITH O2 SATS AT 99%. ASSESSMENT COMPLETE. LUNG SOUNDS CLEAR. BOWEL TONES ACTIVE. PT REPORTS NUMBNESS AND TINGLING IN BILAT FEET. PT REPORTING PAIN 3/10 IN LEFT HIP, LOWER BACK AND ABOVE LEFT KNEE. PT DENIES PRN PAIN MEDICAITON WHEN OFFERED. LLE REDNESS NOTED, DOES NOT GO BEYOND OUTLINE. WARM TO TOUCH. EDEMA NOTED. IV FLUSHED WNL. VITALS COMPLETE. PT DENIES ANY OTHER NEEDS AT THIS TIME. CALL LIGHT IN REACH. IN ROOM
--- NOTE | 2023-01-05 14:35 | NUR ---
WATER AND DIET CAM PROVIDED.
[2023-01-05] MEDS ORDERED: TYLENOL325 MG PO (15:41)
--- NOTE | 2023-01-05 15:45 | NUR ---
MED REC COMPLETE
--- NOTE | 2023-01-05 16:19 | NUR ---
IN TO ROUND ON PT. PT RESTING IN RECLINER WITH EYES CLOSED, RR EVEN AND UNLABORED. ON COUCH. DENIES ANY NEEDS AT THIS TIME. CALL LIGHT IN REACH.
--- NOTE | 2023-01-05 16:52 | NUR ---
THIS RN CALLED DR. GARZA REGARDING PTs BG OF [phone]. NO NEW ORDERS AT THIS TIME.
--- NOTE | 2023-01-05 21:26 | NUR ---
madelyn pt. pt has mild pain in left leg. Otherwise very pleasant and talkative.
[2023-01-06 00:56] VITALS: BP 109/62
--- NOTE | 2023-01-06 04:28 | NUR ---
PT slept on chair until 2100. Transfered pt to bed with 2 person assist, walked and gaitbelt. PT is very weak and unsteady. Left leg and thighs warm and pink and +1 edema. Pain controlled with Tylenol and flexeril.
[2023-01-06 04:38] VITALS: BP 114/66
[2023-01-06 05:17] LABS: BASOPHILS 0.1 % (0-2); EOSINOPHILS 2.4 % (0-6); HEMATOCRIT 34.8 % (35.0-50.0); HEMOGLOBIN 11.5 g/dL (12.0-18.0); LYMPHOCYTES 8.5 % (24-44); MCH 30.2 (27-36); MCHC 33.2 g/dl (30-36); MCV 91.1 fl (81-99); MONOCYTES 6.1 % (0-12); NEUTROPHILS 82.9 % (39-80); PLATELET COUNT 324 K/uL (140-440); RBC 3.81 M/ul (4.3-5.7); RDW 14.4 (10.5-15.0)
[2023-01-06 05:30] LABS: ALBUMIN 1.6 g/dL (3.4-5.0); ALBUMIN/GLOBULIN RATIO 0.38 (1.1-2.4); ANION GAP 10.4 (7-21); BILIRUBIN, TOTAL 0.6 ng/dL (0.2-1.0); BUN/CREATININE RATIO 23.12 (6.0-28.6); CALCIUM 8.3 mg/dL (8.5-10.1); CREATININE, SERUM 1.73 mg/dL (0.70-1.30); POTASSIUM 3.4 mmol/L (3.5-5.1); PROTEIN, TOTAL 5.8 g/dL (6.4-8.2)
--- NOTE | 2023-01-06 07:00 | NUR ---
REPORT RECEIVED FROM PEACE BARBER, ALL QUESTIONS ANSWERED. PT RESTING IN BED WITH EYES CLOSED, RESPIRATIONS EVEN AND UNLABORED, 95% O2 ON RA. BED ALARM ON AND CALL LIGHT IN REACH.
--- NOTE | 2023-01-06 09:20 | NUR ---
MORNING ASSESSMENT COMPLETE. PT SITTING UP IN CHAIR. LEFT THIGH REDNESS DECREASED FROM PREVIOUS LINE. HEART RATE IRREGULAR, 120 APICAL. PT GIVEN SCHEDULED MEDICATIONS. MYRICK DRAINING CLEAR YELLOW URINE. PT DENIES FURTHER NEEDS AT THIS TIME. CALL LIGHT IN REACH.
[2023-01-06 09:53] VITALS: BP 134/74
--- NOTE | 2023-01-06 10:01 | NUR ---
PATIENT IN CHAIR AFTER MEAL. VITALS AND I/O'S COMPLETED. MYRICK DRAINED AND DOCUMENTED. PT HAS NO OTHER REQUESTS AT THIS TIME. CALL LIGHT WITHIN REACH.
--- NOTE | 2023-01-06 10:33 | NUR ---
ASSISTED P.T. WITH STANDING PT, PT ABLE TO TAKE A FEW STEPS FORWARD. HR INTERMITTENTLY MONITORED WITH RADIAL PULSE, HR REMAINED BETWEEN 100-110 DURING THERAPY, IRREGULAR. PT NOW RESTING IN CHAIR, PROVIDED WITH FRESH ICE WATER. IV TO LEFT AC WITH LEAKING DURING THERAPY, INFUSION STOPPED AND IV FLUSHED, PATENT WITHOUT SIGNS OF LEAK, IV FLUIDS RESUMED.
--- NOTE | 2023-01-06 12:20 | NUR ---
PT C/O 11/18 LLE PAIN, GIVEN PRN TYLENOL. SEE EMAR. PT DENIES FURTHER NEEDS AT THIS TIME. CALL LIGHT IN REACH.
[2023-01-06 13:29] VITALS: BP 113/69
--- NOTE | 2023-01-06 13:32 | NUR ---
PATIENT IN CHAIR AFTER MEAL. VITALS AND I/O'S COMPLETED. MYRICK DRAINED AND DOCUMENTED. PT HAS NO OTHER REQUESTS AT THIS TIME. CALL LIGHT WITHIN REACH.
[2023-01-06 17:41] VITALS: BP 114/76
[2023-01-06 19:14] VITALS: BP 112/52
--- NOTE | 2023-01-06 21:40 | NUR ---
Emptied Pts urinal at Pt's request. Gave Pt fresh ice water. Call light left in reach. No other needs expressed by Pt.
--- NOTE | 2023-01-07 04:48 | NUR ---
Pt has been voiding after ware removal. Pain still present on left leg. Got up to the commode with two person hannah, had a small BM hard/constipated requesting stool softner.
[2023-01-07 05:20] VITALS: BP 142/74
[2023-01-07 05:40] LABS: BASOPHILS 0.2 % (0-2); HEMATOCRIT 34.1 % (35.0-50.0); HEMOGLOBIN 11.2 g/dL (12.0-18.0); LYMPHOCYTES 5.9 % (24-44); MCH 30.3 (27-36); MCHC 32.9 g/dl (30-36); MCV 92.2 fl (81-99); MONOCYTES 6.4 % (0-12); NEUTROPHILS 86.5 % (39-80); PLATELET COUNT 351 K/uL (140-440); RDW 14.5 (10.5-15.0)
[2023-01-07 05:55] LABS: ALBUMIN 1.7 g/dL (3.4-5.0); ALBUMIN/GLOBULIN RATIO 0.4 (1.1-2.4); ANION GAP 14.8 (7-21); BILIRUBIN, TOTAL 0.7 ng/dL (0.2-1.0); BUN/CREATININE RATIO 22.22 (6.0-28.6); CALCIUM 8.1 mg/dL (8.5-10.1); CREATININE, SERUM 1.62 mg/dL (0.70-1.30); POTASSIUM 3.8 mmol/L (3.5-5.1); PROTEIN, TOTAL 5.9 g/dL (6.4-8.2)
--- NOTE | 2023-01-07 06:43 | NUR ---
Pt had a xlarge bowel movement. Currently he is sitting on the chair.
--- NOTE | 2023-01-07 07:28 | NUR ---
Report received from Gabe BARBER. Pt resting in chair with eyes closed, even and unlabored respirations, no needs identified at this time. Call light in reach. Will cont. plan of care.
--- NOTE | 2023-01-07 09:06 | NUR ---
SCHEDULED MEDICATIONS ADMINISTERED. PT SITTING UP IN CHAIR EATING BREAKFAST, DENIES PAIN. DR GARZA AT BEDSIDE TO ROUND. VSS. PT REPORTS "FEELING MUCH BETTER". ASSESSMENT COMPLETE. ASSISTED USING URINAL.
[2023-01-07 09:14] VITALS: BP 142/81
--- NOTE | 2023-01-07 09:25 | NUR ---
pt becomes nauseated when eating, states "food went down wrong", small amount emesis, denies nausea medication. Educated regarding potential side effects of ABX, pt states will notify RN if nausea returns or with other needs.
--- NOTE | 2023-01-07 12:57 | NUR ---
Scheduled insulin administered, pt denies needs, would like a diet soda, provided. Call light in reach.
[2023-01-07 13:12] VITALS: BP 121/76
--- NOTE | 2023-01-07 13:16 | NUR ---
PATIENT IN CHAIR AFTER MEAL. VITALS AND I/O'S COMPLETED. ICE WATER GIVEN. PT VOICES NO OTHER REQUESTS AT THIS TIME. CALL LIGHT WITHIN REACH.
--- NOTE | 2023-01-07 15:36 | NUR ---
Scheduled medications administered, VSS. Pt c/o discomfort related to frequent urination, explained hyponatremia and kidney function, pt agreeable to plan of care but states "frustrated". Pt states no further needs. Call light in reach.
--- NOTE | 2023-01-07 16:49 | NUR ---
Pt calls to request a sandwich for dinner. CB checked, 277. Pt denies further needs.
--- NOTE | 2023-01-07 17:42 | NUR ---
Scheduled insulin provided. Pt resting in chair, IVF infusing WNL. Pt denies needs or pain at this time. Watching tv. Call light in reach.
[2023-01-07 18:07] VITALS: BP 121/64
--- NOTE | 2023-01-07 19:05 | NUR ---
BEDSIDE REPORT RECEIVED FROM OFFGOING RNDOMINIQUE.
[2023-01-07 21:19] VITALS: BP 131/70
--- NOTE | 2023-01-07 21:43 | NUR ---
PT ASSESSMENT COMPLETE. PT RESTING IN BED WITH EYES CLOSED. WAKES EASILY WHEN HORSE BREAKER ENTERS THE ROOM. PT DENIES PAIN, NAUSEA, OR SOB. PT EXPRESSES FRUSTRATION ABOUT HAVING MYRICK CATHETER OUT AND HAVING DRIBBLING INCONTINENCE. PT STATES THAT HE PREFERS TO KEEP THE URINAL BETWEEN HIS LEGS AT THIS TIME. STATES THAT WHEN HE [facility] HAD SURGERY IN THE PAST HE HAD THE SAME EXPERIENCE. PT ALSO STATES THAT HE IS FRUSTRATED THAT MD MENTIONED SNF FACILITY, HE WOULD PREFER TO GO HOME WITH ASSISTANCE FROM AND OUTPT THERAPIES. HORSE BREAKER REASSURES PT THAT I WILL PASS THIS MESSAGE ALONG. HR IRREGULAR. LLE WITH WARMTH AND REDNESS WITHIN THE OUTLINED AREA. EDEMA PRESENT TO LLE 3+, RLE 2+. PT REPORTS CHRONIC NUMBNESS AND TINGLING TO BLE'S. IV FLUSHED WITH 5ML NS. SLUGGISH. IVF INFUSING ORDERED. PT ICE WATER REFILLED AND YOGURT PLACED IN FRIDGE WITH PT STICKER PER REQUEST. POC FOR THIS SHIFT DISCUSSED. PT DENIES QUESTIONS, CONCERNS, OR NEEDS AT THIS TIME. CALL LIGHT IN PT REACH.
--- NOTE | 2023-01-07 22:45 | NUR ---
BUNG REMOVER TO ROOM FOR IV PUMP ALARMING. PT STATES THAT HE WOULD LIKE TO WEAR ATTENDS TO BED INSTEAD OF USING URINAL. PT ASSISTED TO PLACE ATTENDS. PT DENIES FURTHER NEEDS AT THIS TIME. CALL LIGHT IN REACH.
--- NOTE | 2023-01-08 00:56 | NUR ---
PT ROUNDING. PT RESTING IN BED WITH EYES CLOSED, RESPIRATIONS EVEN AND UNLABORED. CALL LIGHT IN REACH.
--- NOTE | 2023-01-08 03:41 | NUR ---
PT ASSESSMENT COMPLETE. PT UTILIZES CALL LIGHT, REQUESTS PRN FOR 7/10 BACK AND LLE PAIN. PRN ADMINISTERED, SEE EMAR. PT DENIES NASUEA OR SOB. PT LLE REAMSINS RED AND WARMTH, WITHIN OUTLINED AREA. 2+ EDEMA TO LLE, 1+EDEMA TO RLE. CHRONIC NUMBNESS TO BLE'S UNCHANGED. PT ABLE TO STAND AT BEDSIDE WITH ASSISTANCE AND FWW TO CHANGE ATTENDS. PT ASSISTED BACK TO BED AND REPOSITIONED FOR COMFORT. PT DENIES FURTHER NEEDS AT HIS TIME. CALL LIGHT IN REACH.
[2023-01-08 05:19] VITALS: BP 127/68
[2023-01-08 05:21] LABS: BASOPHILS 0.2 % (0-2); EOSINOPHILS 1.6 % (0-6); HEMATOCRIT 31.9 % (35.0-50.0); HEMOGLOBIN 10.7 g/dL (12.0-18.0); LYMPHOCYTES 8.4 % (24-44); MCH 30.5 (27-36); MCHC 33.6 g/dl (30-36); MCV 90.6 fl (81-99); MONOCYTES 9.1 % (0-12); NEUTROPHILS 80.7 % (39-80); PLATELET COUNT 353 K/uL (140-440); RBC 3.53 M/ul (4.3-5.7); RDW 14.3 (10.5-15.0)
--- NOTE | 2023-01-08 05:21 | NUR ---
VS OBTAINED, WNL. PT REPORTS THAT ATTENDS ARE DRY, DECLINES TO HAVE THEM CHANGED AT THIS TIME. ICE WATER REFILLED. PT DENIES FURTHER NEEDS AT THIS TIME. CALL LIGHT IN REACH.
[2023-01-08 05:41] LABS: ALBUMIN 1.7 g/dL (3.4-5.0); ALBUMIN/GLOBULIN RATIO 0.43 (1.1-2.4); BILIRUBIN, TOTAL 0.6 ng/dL (0.2-1.0); CALCIUM 8.2 mg/dL (8.5-10.1); CREATININE, SERUM 1.6 mg/dL (0.70-1.30); PROTEIN, TOTAL 5.7 g/dL (6.4-8.2)
--- NOTE | 2023-01-08 07:27 | NUR ---
Got report from security shift manager nurse. Patient attends changed, patient used walker to get up into the chair. Patient tolerated well with walker. IV running, blanket over legs, call light within reach. Patient denies any other cares at this time.
--- NOTE | 2023-01-08 08:13 | NUR ---
INTO GIVE PATIENT MORNING MEDICATIONS AND INSULIN BEFORE BREAKFAST. PATIENTS IV DRESSING SITE IS COMING OFF. OLD DRESSING REMOVED, SKIN CLEANED AND NEW DRESSING SITE APPLIED. IV RUNNING WITH NO COMPLICATIONS. PATIENT CURRENTLY IN CHAIR, CALL LIGHT WITHIN REACH, BEDSIDE TABLE NEXT TO HIM. DOCTOR WAS IN AND VISITED WITH PATIENT WHILE NURSE WAS IN ROOM.
--- NOTE | 2023-01-08 08:51 | NUR ---
Patient going down to imaging.
--- NOTE | 2023-01-08 09:15 | NUR ---
PATIENT BACK FROM IMAGING. PT CURRENTLY IN WITH PATIENT.
--- NOTE | 2023-01-08 09:17 | NUR ---
STOPPED BY PATIENT'S ROOM TO DISCUSS THE DISCHARGE PLAN. PATIENT WORKING WITH PT. DIRECTOR OF ACCREDITATION WILL RETURN LATER.
[2023-01-08 09:49] VITALS: BP 140/65
--- NOTE | 2023-01-08 11:01 | NUR ---
PATIENT WORKING WITH OCCUPATIONAL THERAPY CURRENTLY.
--- NOTE | 2023-01-08 12:03 | NUR ---
IN ROOM TO GO OVER IMAGING RESULTS. PATIENT JUST GIVEN INSULIN. PATIENT ADVISED HE WILL NEED TO BE TRANSFERED TO HAVE [facility]SCESS TAKEN CARE OF.
--- NOTE | 2023-01-08 12:53 | NUR ---
CALL TO IMAGING TO PUSH PATIENT IMAGES TO [facility].
--- NOTE | 2023-01-08 12:59 | NUR ---
PT IN CHAIR. AND ANOTHER VISITOR ON COUCH. PT SAYS FEELING BETTER. WAITING ON NUMBERS TO BE SATISFACTORY TO MEDICAL TEAM. DENIED NEEDS. CONSENTED TO PRAYER. PRAYED FOR HEALING AND ONGOING BLESSING.
--- NOTE | 2023-01-08 13:03 | NUR ---
CALL TO IMAGING TO P[facility].
--- NOTE | 2023-01-08 13:37 | NUR ---
SPOKE TO PATIENT ABOUT THE DISCHARGE PLAN. PATIENT IS A LITTLE DEPRESSED TODAY.PATIENT WANTS TO GO HOME SOON. THE PATIENT STATES THAT HE MAY NEED TO BE TRANSFERED TO ANOTHER HOSPITAL. DISCHARGE PLANNING WILL HELP NEEDED THE DISCHARGE PLAN CHANGES.
--- NOTE | 2023-01-08 13:57 | NUR ---
PATIENT UP TO THE BEDSIDE COMMODE TO HAVE A BOWEL MOVEMENT. GOWN CHANGED WHILE PATIENT UP. FAMILY HERE TO VISIT BUT STEPPED OUT WHILE PATIENT WAS USING THE RESTROOM. NEW ATTENDS PLACED.
[2023-01-08 14:11] VITALS: BP 119/68
--- NOTE | 2023-01-08 17:39 | NUR ---
PATIENT RETURNED FROM IMAGING, 2PA TO BED.
--- NOTE | 2023-01-08 17:41 | NUR ---
phone call from lab stating they only got samples from the thigh and the knee however, the thigh hemolyzed. Phone call to and he was advised.
[2023-01-08 17:42] VITALS: BP 146/90
--- NOTE | 2023-01-08 17:53 | NUR ---
PATIENT GIVEN INSULIN AND TYLENOL. PATIENT ADVISED NURSE THE PROCEDURE WAS MORE INTENSE THEN HE THOUGHT IT WOULD BE. PATIENT IS TIRED AND WOULD LIKE HIS SANDWICH TO JUST GO IN THE FRIDGE AT THIS TIME. HE WOULD LIKE TO CLOSE HIS EYES FOR A FEW. IV FLUIDS RUNNING, PATIENT HAS WATER AND CALL LIGHT NEXT TO HIM ON TABLE.
[2023-01-08 19:01] LABS: RBC, SYOVIAL FLUID 8886; VISCOSITY, SYNOVIAL FLUID NON VISCOUS; WBC, SYNOVIAL FLUID 938
--- NOTE | 2023-01-08 19:05 | NUR ---
BEDSIDE REPORT RECEIVED FROM OFFGOING RNDA. PT RESTING IN BED WITH EYES CLOSED.
[2023-01-08 19:06] LABS: MONONUCLEAR CELLS, SYNOVIAL FL 19; PMNS, SYNOVIAL FLUID 81
[2023-01-08 20:57] VITALS: BP 141/66
--- NOTE | 2023-01-08 21:06 | NUR ---
PHONE CALL FROM [facility], IMAGES REQUESTED FOR [facility]QUE[facility]. FREIGHT CAR LOADER FORWARDED IMAGES AT THIS TIME.
--- NOTE | 2023-01-08 21:19 | NUR ---
PT ASSESSMENT COMPLETE. PT REPORTS PAIN TO BACK AND LLE, PRN ADMINISTERED, SEE EMAR. PT DENIES SOB OR NAUEA. HR IRREGULAR. LLE WITH WARMTH AND REDNESS TO THE THIGH, REMAINS WITHIN OUTLINED AREA. BANDAID PRESENT TO L KNEE WHERE ASPIRATION WAS PERFORMED. L CALF AND L ANKLE WITH 3+ EDEMA, RLE WITH 2+ EDEMA. IV FLUSHED WITH 10 ML NS. WNL. IVF INFUSING ORDERED. PT PROVIDED WITH SANDWHICH BOX, DIET SODA, ICE WATER REFILLED. PT DENIES FURTHER NEEDS, QUESTIONS, OR CONCERNS. CALL LIGHT IN REACH.
--- NOTE | 2023-01-08 22:04 | NUR ---
IV PUMP ALARMING, DISTAL OCCLUSION. IVF INFUSING WNL. WARM BLANKET PROVIDED. CALL LIGHT IN REACH.
--- NOTE | 2023-01-08 23:05 | NUR ---
PATIENT CALLED. CHANGED INCONTINENT ATTENDS. NO OTHER NEEDS AT THIS TIME.
--- NOTE | 2023-01-08 23:32 | NUR ---
PT ROUNDING. PT RESTINGIN BED WITH EYES CLOSED. RESPIRATIONS EVEN AND UNLABORED. PT APPEARS TO BE SLEEPING. CALL LIGHT IN REACH.
--- NOTE | 2023-01-09 00:45 | NUR ---
PT ROUNDING. PT RESTING IN BED WITH EYES CLOSED. RESPIRATIONS EVEN AND UNLABORED, PT APPEARS TO BE SLEEPING. CALL LIGHT IN REACH.
--- NOTE | 2023-01-09 02:05 | NUR ---
PT UTILIZES CALL LIGHT FOR IV PUMP ALARMING. DIRECTOR HOSPICE OPERATIONS TO ROOM. ASSESSMENT COMPLETE. PT REPORTS 3-4/10 PAIN TO BILATERAL FEET. PRN ADMINISERED. PT DENIES NAUSEA OR SOB. HR IRREGULAR. EDEMA TO RLE 2+, LLE EDEMA 3+. REDNESS AND WARMTH TO LLE REMAINS, IS WITHIN OUTLINED AREA. IVF INFUSING ORDERED. PT DENIES FURTHER NEEDS AT THIS TIME. CALL LIGHT IN REACH.
--- NOTE | 2023-01-09 04:42 | NUR ---
PT ROUNDING. PT RESTING IN BED WITH EYES CLOSED. RESPIRATIONS EVEN AND UNLABORED. PT APPEARS TO BE SLEEPING. DOES NOT WAKE WHILE LIPSTICK MOLDER IN DOORWAY. CALL LIGHT IN REACH.
[2023-01-09 05:24] VITALS: BP 137/61
[2023-01-09 05:39] LABS: BASOPHILS 0.3 % (0-2); EOSINOPHILS 2.6 % (0-6); HEMATOCRIT 30.9 % (35.0-50.0); HEMOGLOBIN 10.4 g/dL (12.0-18.0); MCH 30.6 (27-36); MCHC 33.7 g/dl (30-36); MCV 90.9 fl (81-99); MONOCYTES 8.1 % (0-12); PLATELET COUNT 407 K/uL (140-440); RDW 14.5 (10.5-15.0)
--- NOTE | 2023-01-09 05:40 | NUR ---
CHANGED INCONTINENT ATTENDS.
[2023-01-09 06:02] LABS: ALBUMIN 1.7 g/dL (3.4-5.0); ALBUMIN/GLOBULIN RATIO 0.41 (1.1-2.4); BILIRUBIN, TOTAL 0.6 ng/dL (0.2-1.0); BUN/CREATININE RATIO 22.29 (6.0-28.6); CALCIUM 8.1 mg/dL (8.5-10.1); CREATININE, SERUM 1.57 mg/dL (0.70-1.30); PROTEIN, TOTAL 5.8 g/dL (6.4-8.2)
--- NOTE | 2023-01-09 07:24 | NUR ---
PT RESTING EYES CLOSED AT TIME OF SHIFT REPORT. AWAKE NOW COOPERATIVE ANSWERS QUESTIONS APPROPRIATELY. FRESH H20 AT BEDSIDE CALL LIGHT IN REACH. PT DENIES NEEDS OF
--- NOTE | 2023-01-09 09:03 | NUR ---
OFFERED ASSIST TO THE CHAIR PT STATES HE IS NOT READY WILL WAIT FOR P/T. EATS A SMALL AMOUNT OF MORNING MEAL ADDITIONAL ITEMS REFUSED. MENU PROVIDED PT ENCOURAGED TO MAKE PREFERENCES KNOWN. TYLENOL PROVIDED FOR CHRONIC BACK AND FEET PAIN. PT READING A MAGAZINE AT THIS TIME DENIES NEEDS OF.
[2023-01-09 09:38] VITALS: BP 128/70
--- NOTE | 2023-01-09 10:07 | NUR ---
PT SITTING UP IN BED VISITOR PRESENT X1
--- NOTE | 2023-01-09 11:11 | NUR ---
PT UP AND WORKS WITH P/T.
--- NOTE | 2023-01-09 11:21 | NUR ---
PT TOLERATES P/T WELL, IS UP IN THE CHAIR AT THIS TIME PRESENT IN THE ROOM. AGREES HE IS AWARE HE WILL TRANSFER TO [facility] WHEN THE BED OPENS. DENIES QUESTIONS OR CONCERNS. AGREES HE IS COMFORTABLE AND HAS NEEDED ITEMS
--- NOTE | 2023-01-09 11:47 | NUR ---
SPOKE TO PATIENT ABOUT HIS DISCHARGE PLAN. PATIENT PLANS TO BE TRANSFERED TO A [facility] WHEN BED SPACE IS AVAILABLE.
--- NOTE | 2023-01-09 12:09 | NUR ---
recieved CALL FROM TOYA AT [facility], HAS A BED CONFIRMATION ON FLOOR 14. CHECK IN THROUGH THE ED AND THEY WILL TAKE UP TO FLOOR. CALLED JUICE MIXER AFTER INFORMING AND CALLED CLAUDINE SUAREZ.
--- NOTE | 2023-01-09 13:12 | NUR ---
PT ASSISTED BACK TO THE BED FROM THE CHAIR. UNDERGARMENT CHANGED GINNY CARE DONE. FLEXARIL ADMINISTERED IN ANTICIPATION OF TRANSPORT. ASKED WHERE PERSONAL BELONGINGS ARE PT RESPONDS "MY TOOK EVERYTHING HOME" NO ITEMS ARE PRESENT TO PACK UP FOR THIS PT.
--- NOTE | 2023-01-09 13:54 | NUR ---
PT APPEARS TO BE STRUGGLING WITH DESPAIR. I EXERCISED MINISTRY OF PRESENCE PT TALKED OF FRUSTRATION WITH ONGOING DISCOMFORT AND REPEATED HEALTH CHALLENGES. STATES HE IS STRUGGLING TO FIND MOTIVATION TO MAINTAIN PHYSICAL STRENGTH. TALKE OF FAMILY AND NEED TO BE THERE FOR THEM. I TALKED OF ALLOWING THEM TO SUPPORT HIM. STATED HE WOULD KEEP ON DOWING WHAT WAS NEEDED. CONSENTED TO PRAYER. PRAYED FOR STRENGTH AND PERSERVENCE ALONG WITH HEALING AND ONGOING BLESSING.
--- NOTE | 2023-01-09 14:05 | NUR ---
PT OFF FLOOR WITH EMS. ASSISTED TO STRETCHER. BELONGINGS HAVE BEEN SENT WITH PREVIOUSLY. PAPERWORK/PACKET SENT WITH EMS.
== END 2023-01-09 13:55 | disposition short-term general hospital (02) | DRG 919 ==
LOC: ED 10:22 → MS 13:48 → CCU 13:48 → MS 01-05 13:30
PROVIDERS: Emergency Medicine; Family Medicine; ADMIT Internal Medicine; ATTEND Internal Medicine
PROC: 0S9D3ZZ Drainage of Left Knee Joint, Percutaneous Approach (ICD-10-PCS; principal; 2023-01-08)
PROC: 0Y9D3ZZ Drainage of Left Upper Leg, Percutaneous Approach (ICD-10-PCS; 2023-01-08)
PROC: BQ48ZZZ Ultrasonography of Left Knee (ICD-10-PCS; 2023-01-08)
DX: T85.694A Other mechanical complication of insulin pump, initial encounter (principal); E11.10 Type 2 diabetes mellitus with ketoacidosis without coma; E87.1 Hypo-osmolality and hyponatremia; N17.9 Acute kidney failure, unspecified; R78.81 Bacteremia; M60.009 Infective myositis, unspecified site; E46 Unspecified protein-calorie malnutrition; L02.416 Cutaneous abscess of left lower limb; L03.116 Cellulitis of left lower limb; E86.0 Dehydration; T84.54XA Infection and inflammatory reaction due to internal left knee prosthesis, initial encounter; E11.22 Type 2 diabetes mellitus with diabetic chronic kidney disease; E87.6 Hypokalemia; I48.91 Unspecified atrial fibrillation; B95.62 Methicillin resistant Staphylococcus aureus infection as the cause of diseases classified elsewhere; I12.9 Hypertensive chronic kidney disease with stage 1 through stage 4 chronic kidney disease, or unspecified chronic kidney disease; M48.061 Spinal stenosis, lumbar region without neurogenic claudication; E88.2 Lipomatosis, not elsewhere classified; N18.32 Chronic kidney disease, stage 3b; E86.9 Volume depletion, unspecified; Z20.822 Contact with and (suspected) exposure to COVID-19; Y83.8 Other surgical procedures as the cause of abnormal reaction of the patient, or of later complication, without mention of misadventure at the time of the procedure; Z96.653 Presence of artificial knee joint, bilateral; Z96.642 Presence of left artificial hip joint; Z79.891 Long term (current) use of opiate analgesic; Z79.02 Long term (current) use of antithrombotics/antiplatelets; Z87.891 Personal history of nicotine dependence; Z79.899 Other long term (current) drug therapy; Z98.890 Other specified postprocedural states; Z79.811 Long term (current) use of aromatase inhibitors; Z79.4 Long term (current) use of insulin; Z68.27 Body mass index [BMI] 27.0-27.9, adult
CPT/HCPCS: 36415; 51702; 71045; 72158; 73701; 76942; 80048; 80053; 81001; 83605; 83735; 84439; 84443; 85025; 87040; 87077; 87186; 87502; 89051; 93005; 93010; 93306; 93971; 94760; 97110; 97163; 97165; 97530; 97535; 99285-25; A9270; A9579; J0692; J0878; J1650; J1815; J2405; J2543; J3370; J3475; J3490; J7030; J7042; J7060; J7121; Q9967; U0002